=== PATIENT | female | born 1960 | race Caucasian/White ===

== ENCOUNTER 2018-08-13 09:55 | Inpatient (IN) | payer OTHER ==
[~2018-08-13] VITALS: Ht 165.1 cm; Wt 60.8 kg
[2018-08-13] VITALS (28 sets, daily range): BP systolic 108–163; BP diastolic 47–74; PULSE 68–99; RESP 14–20; Ht 165.1 cm; Wt 60.8 kg
[~2018-08-13 09:55] MED LIST: GLYCOPYRROLATE 0.4 MG INJ ONE
--- NOTE | 2018-08-13 12:02 | PREAC ---
Date/Time of Note Date/Time of Note DATE: 08/13/18 TIME: 12:02 Anesthesia Eval and Record Evaluation Time Pre-Procedure Interview DATE: 08/13/18 TIME: 12:02 Age 58 Sex female NPO: 8 hrs Preoperative diagnosis breast CA Planned procedure Mastectomy Past Medical History Past Medical History: None Surgery & Anesthesia Issues No known issue Meds Anticoagulation: No Beta Otoniel within 24 hr: No Reason Beta Otoniel not given: Pt. not on B-Otoniel No Active Prescriptions or Reported Meds Meds reviewed: Yes Allergies Coded Allergies: No Known Allergy (Unverified , 08/13/18) Allergies Reviewed: Yes Labs/Studies Labs Reviewed: Reviewed by anesthesiologist test: Negative Pre-procedure Exam Last vitals Vital Signs Date Temp Pulse Resp B/P (MAP) Pulse Ox O2 O2 Flow FiO2 Time Delivery Rate 08/13/18 99.6 74 16 121/68 99 Room Air 10:05 (85) Airway: Adequate mouth opening, Adequate thyromental dist Mallampati: Mallampati II Teeth: Normal Lung: Normal Heart: Normal ASA Physical Status ASA physical status: 1 Emergency: None Planned Anesthetic General/MAC: ETT Pre-operative Attestations Prior to commencing anesthesia and surgery, the patient was re-evaluated, there was verification of: *The patient's identity *The results of appropriate recent lab work and preoperative vital signs *The above evaluation not changing prior to induction *Anesthetic plan, risk benefits, alternative and complications discussed with patient/family; questions answered; patient/family understands, accepts and wishes to proceed. WOODY SMITH August 13, 2018 12:02
--- NOTE | 2018-08-13 12:32 | HPN ---
Date/Time of Note Date/Time of Note DATE: 08/13/18 TIME: 12:32 Interval H&P Admission Note Pt. seen H&P reviewed: No system changes LINCOLN RUSS MD August 13, 2018 12:32
[2018-08-13] MEDS ORDERED: FENTAnyl 50 MCG/ML VIAL ONE ×2 (12:48→15:58)
[2018-08-13] MEDS ORDERED: CEFAZOLIN 1 GM INJ ONE (14:57)
[2018-08-13] MEDS ORDERED: SUCCINYLCHOLINE CHLORIDE 100 MG/5 ML SYG IV ONE (14:57)
[2018-08-13] MEDS ORDERED: SUGAMMADEX SODIUM 200 MG/2 ML VIAL IV ONE (14:57)
[2018-08-13] MEDS ORDERED: ROCURONIUM 50 MG INJ ONE (14:57)
[2018-08-13] MEDS ORDERED: LIDOCAINE 100 MG SYRINGE ONE (14:57)
[2018-08-13] MEDS ORDERED: PROPOFOL 20 ML ONE (14:57)
[2018-08-13] MEDS ORDERED: BUPIVACAINE 0.25%/EPI (SDV) 30 ML INJ ONE (15:05)
--- NOTE | 2018-08-13 15:50 | OPR ---
Date/Time of Note Date/Time of Note DATE: 08/13/18 TIME: 15:48 Operative Report Procedure Date: August 13, 2018 Preoperative Diagnosis Recurrent invasive ductal carcinoma left breast Postoperative Diagnosis Recurrent invasive ductal carcinoma left breast Operation/Procedure Performed 1. Left modified radical mastectomy 2. Removal of left breast implant 3. Placement of drains Surgeon see signature line [employer] Vishal Lucas MD Anesthesia Type: general Anesthesiologist: WOODY SMITH Estimated Blood Loss: 50 - 100 ml's Transfusion none Specimen 1. Left breast 2. Left axillary lymph node dissection 3. Left breast implant Grafts/Implants none Tubes/Drains 15 [place] Rl drain x2 Complications none Pt Condition Post Procedure: stable Disposition: PACU Indications The patient is a 58-year-old female with a prior history of breast implants and lumpectomy, sentinel lymph node biopsy and chemoradiation to the left breast for a HER-2 positive breast cancer. The patient presented to the office with recurrence of the cancer of the left breast as well as positive left axillary lymph nodes per PET scan. The patient underwent neoadjuvant chemo therapy with minimal response. She was therefore scheduled for modified radical mastectomy with removal of her breast implant on the left side. All risks and benefits of the procedure including, but not limited to: Wound infection, excessive bleeding, postoperative seroma/hematoma formation, prolonged wound healing, wound problems, injury to the long thoracic and thoracodorsal nerves with resulting deficits, etc. were all explained to the patient full detail. Patient fully understood and wished to proceed with the procedure. Informed consent was obtained. Procedure Description Patient was brought to the operating room and placed supine on the operating table. Bilateral sequential compression devices were placed on both lower extremities. A dose of broad-spectrum perioperative intravenous antibiotics was given. After the induction of smooth general endotracheal anesthesia the patient's left breast, axilla, and chest wall were prepped and draped in standard surgical fashion. An elliptical incision was made around the breast to include the nipple areolar complex using a 15 blade scalpel. Incision was carried down through the skin and subcutaneous tissue into the breast tissue using sharp dissection. Flaps were then raised circumferentially to the level of the sternum medially, clavicle superiorly, inframammary fold inferiorly, and latissimus muscle laterally. There was some fibrosis and scarring of the breast tissue from prior surgery and radiation therapy. Approximately the 1:00 location firm mass was palpated. Once circumferential dissection was complete the breast was dissected off of the clavipectoral fascia using electrocautery. Attenuation of the pectoralis muscle was noted. There was some dense fibrosis of the breast tissue to the pectoralis muscle. Once completely dissected off of the clavipectoral fascia the tail of the breast was transected and the specimen passed off the field. Marking suture was used to missy the superior aspect. Intraoperative pathological consultation was obtained and margins were noted to be grossly free of tumor. The breast implant capsule was identified and incised. The breast implant was removed and passed off the field as specimen. Attention was then turned towards the axillary dissection. The patient did have a prior sentinel lymph node biopsy. The remaining axillary tissue was dissected from the level of the axillary vein superiorly to the lateral chest wall and lateral axilla using combination of Bovie electrocautery and LigaSure device. The long thoracic and thoracodorsal neurovascular bundles were identified and preserved throughout the entirety of the procedure. The specimen was then transected and passed off the field. Gloves were then changed in the breast and axillary cavity were irrigated with sterile water. The irrigant returned clear. Hemostasis was inspected for noted to be adequate. A 15 [place]ian round Rl drain was placed over the mastectomy bed, and another drain was placed in the axilla. The drains were brought out through separate stab wounds inferior to the inframammary fold. It was secured in place using 2-0 nylon sutures and hooked up to bulb suction. 0.25% Marcaine with epinephrine was then injected over the area of the incision. Incision was then closed in layers using interrupted 3-0 Vicryl sutures for the dermal layer. The skin was reapproxi mated using 3-0 Monocryl suture in a running subcuticular fashion. Incision was cleaned and Steri-Strips were applied as well as sterile dressings and bios wrap. The patient was then awoke from anesthesia and transported to the recovery room in stable condition. All counts were correct at the end the case x2 LINCOLN RUSS MD August 13, 2018 15:50
[2018-08-13] MEDS ORDERED: HYDROmorphONE 1 MG/5 ML IV SYRINGE IV ONE (15:58)
[2018-08-13] MEDS ORDERED: METOCLOPRAMIDE 10 MG INJ IV PRN (16:00)
[2018-08-13] MEDS ORDERED: IBUPROFEN 600 MG TAB PO PRN (16:00)
[2018-08-13] MEDS ORDERED: HYDROCODONE/APAP (5/325) TAB PO PRN ×2 (16:00)
[2018-08-13] MEDS ORDERED: morphine 4 MG/ML VIAL IV PRN (16:00)
[2018-08-13] MEDS ORDERED: DIPHENHYDRAMINE 50 MG INJ IV PRN (16:00)
[2018-08-13] MEDS ORDERED: ONDANSETRON 4 MG INJ IV PRN ×2 (16:00)
[2018-08-13] MEDS ORDERED: ACETAMINOPHEN 325 MG TAB PO PRN (16:00)
[2018-08-13] MEDS ORDERED: ALBUTEROL 0.083% (NEB) 2.5 MG/3 ML AMP HHN PRN (16:00)
[2018-08-13] MEDS ORDERED: HYDROmorphONE 1 MG/5 ML IV SYRINGE IV PRN ×3 (16:00)
[2018-08-13] MEDS ORDERED: FENTAnyl 50 MCG/ML VIAL IV PRN ×3 (16:00)
[2018-08-13] MEDS ORDERED: MEPERIDINE 25 MG INJ IV PRN (16:00)
[2018-08-13] MEDS: KETOROLAC 30 MG INJ IV PRN (18:06)
[2018-08-13] MEDS: DEXTROSE 5%-0.45% NACL 1,000 ML IV SCH (18:09)
[2018-08-13] MEDS: DOCUSATE SODIUM 100 MG CAP PO SCH (21:49)
[2018-08-13] MEDS: FAMOTIDINE 20 MG TAB PO SCH (21:50)
[2018-08-14] MEDS: KETOROLAC 30 MG INJ IV PRN ×2 (00:14→08:52)
[2018-08-14 02:15] VITALS: BP 109/55; PULSE 73
[2018-08-14 04:00] VITALS: BP 120/68; PULSE 70
[2018-08-14] MEDS: DEXTROSE 5%-0.45% NACL 1,000 ML IV SCH (04:41)
--- NOTE | 2018-08-14 07:26 | PAC ---
Date/Time of Note Date/Time of Note DATE: 08/14/18 TIME: 07:26 Post-Anesthesia Notes Post-Anesthesia Note Last documented vital signs Vital Signs Date Temp Pulse Resp B/P (MAP) Pulse Ox O2 O2 Flow FiO2 Time Delivery Rate 08/14/18 98.5 70 120/68 98 Room Air 04:00 (85) 08/13/18 20 19:30 08/13/18 3.0 17:10 Activity: WNL Respiratory function: WNL Cardiovascular function: WNL Mental status: Baseline Pain reasonably controlled: Yes Hydration appropriate: Yes Nausea/Vomiting absent: Yes WOODY SMITH August 14, 2018 07:26
[2018-08-14 08:05] VITALS: BP 100/55; PULSE 82
[2018-08-14] MEDS: DOCUSATE SODIUM 100 MG CAP PO SCH (08:53)
[2018-08-14] MEDS: FAMOTIDINE 20 MG TAB PO SCH (08:53)
--- NOTE | 2018-08-14 08:55 | PN ---
Date/Time of Note Date/Time of Note DATE: 08/14/18 TIME: 08:53 Assessment/Plan Lines/Catheters IV Catheter Type (from Nrsg): Peripheral IV Assessment/Plan Assessment/Plan 58-year-old female status post left modified radical mastectomy postoperative day #1 * Out of bed/incentive spirometry * Stable for discharge home. * Drain care teaching * Follow-up in office in 1 week Subjective 24 Hr Interval Summary Doing well. Pain controlled. Drain output 60 cc total. Serosanguineous. Afebrile. Exam/Review of Systems Vital Signs Vitals Vital Signs Date Temp Pulse Resp B/P (MAP) Pulse Ox O2 O2 Flow FiO2 Time Delivery Rate 08/14/18 98.6 82 100/55 92 Room Air 08:05 (70) 08/13/18 20 19:30 08/13/18 3.0 17:10 Intake and Output 08/13/18 08/13/18 08/14/18 1515:00 23:00 07:00 IntakeIntake Total 1000 ml 1200 ml OutputOutput Total 1660 ml BalanceBalance 1000 ml -460 ml Exam Free Text/Dictation GENERAL: Awake, alert, oriented x 3. No acute distress. CARDIOVASCULAR: S1S2, regular rate and rhythm. No murmurs appreciated. RESPIRATORY: Clear to auscultation bilaterally. BREASTS: Left mastectomy site clean, dry, intact. Flaps viable. ABDOMEN: Soft, bowel sounds present, nondistended, nontender to palpation. EXTREMITIES: Free range of motion x 4. No cyanosis, edema, or clubbing. NEUROLOGIC: Cranial nerves II-XII are intact. Sensation is intact grossly. Results Result Diagram: 08/14/18 0431 08/14/18 0431 LINCOLN RUSS MD August 14, 2018 08:55
--- NOTE | 2018-08-14 08:58 | PDOCDIS ---
Discharge Instructions DIAGNOSIS Discharge Diagnosis Invasive ductal carcinoma left breast CONDITION [id number] Patient Condition: [id number] Stable HOME CARE INSTRUCTIONS: [id number] Diet Instructions: [id number] Regular ACTIVITY: [id number] Activity Restrictions: [id number] Avoid heavy lifting FOLLOW UP/APPOINTMENTS Follow-up Plan Follow-up in 1-2 weeks LINCOLN RUSS MD August 14, 2018 08:58
--- NOTE | 2018-08-14 09:00 | DS ---
Date/Time of Note Date/Time of Note DATE: 08/14/18 TIME: 08:58 Discharge Summary Admission/Discharge Info Admit Date/Time August 13, 2018 at 09:55 Discharge Date/Time Discharge Diagnosis Invasive ductal carcinoma left breast Patient Condition: Stable Procedures Left modified radical mastectomy Hx of Present Illness The patient is a 58-year-old female with a prior history of breast implants and lumpectomy, sentinel lymph node biopsy and chemoradiation to the left breast for a HER-2 positive breast cancer. The patient presented to the office with recurrence of the cancer of the left breast as well as positive left axillary lymph nodes per PET scan. The patient underwent neoadjuvant chemo therapy with minimal response. She was therefore scheduled for modified radical mastectomy with removal of her breast implant on the left side. Hospital Course Patient underwent left modified radical mastectomy and removal of her left breast implant without complication. Postoperative course uneventful. She is stable for discharge on postoperative day 1 with her pain controlled and tolerating diet. Follow-up Plan Follow-up in 1-2 weeks Primary Care Provider Not On Staff Doctor Time spent on discharge: > 30 minutes Pending Labs Laboratory Tests Test 08/14/18 04:31 08/14/18 07:56 White Blood Count 7.0 10^3/ul (4.8-10.8) Red Blood Count 3.10 10^6/ul (4.20-5.40) Hemoglobin 10.2 g/dl (12.0-16.0) Hematocrit 31.1 % (37.0-47.0) Mean Corpuscular Volume 100.3 fl (82.0-101.0) Mean Corpuscular Hemoglobin 32.9 pg (29.0-33.0) Mean Corpuscular 32.8 g/dl (32.0-37.0) Hemoglobin Concent Red Cell Distribution Width 12.9 % (11.5-14.5) Platelet Count 129 10^3/UL (140-415) Mean Platelet Volume 14.2 fl (7.4-10.4) Immature Granulocytes % 0.100 % (0.001-0.429) Neutrophils % 75.1 % (39.0-77.0) Lymphocytes % 14.9 % (15.0-51.0) Monocytes % 9.5 % (0.0-11.0) Eosinophils % 0.1 % (0.0-7.0) Basophils % 0.3 % (0.0-2.0) Nucleated Red Blood Cells % 0.0 /100WBC (0.0-0.0) Immature Granulocytes # 0.010 10^3/ul (0.0-0.031) Neutrophils # 5.2 10^3/ul (1.6-7.5) Lymphocytes # 1.0 10^3/ul (0.8-2.9) Monocytes # 0.7 10^3/ul (0.3-0.9) Eosinophils # 0.0 10^3/ul (0.0-0.5) Basophils # 0.0 10^3/ul (0.0-0.1) Nucleated Red Blood Cells # 0.0 10^3/ul (0.0-0.0) Sodium Level 140 mmol/L (135-144) Potassium Level 4.4 mmol/L (3.5-5.1) Chloride Level 109 mmol/L (97-110) Carbon Dioxide Level 29 mmol/L (21-31) Anion Gap 2 (5-13) Blood Urea Nitrogen 6 mg/dl (7-20) Creatinine 0.58 mg/dl (0.44-1.00) Est Glomerular Filtrat > 60 mL/min (>60) Rate mL/min Glucose Level 113 mg/dl (70-220) Calcium Level 8.2 mg/dl (8.4-10.2) Lab Scanned Report REFER[facility] LAB [id number] LINCOLN RUSS MD August 14, 2018 09:00
== END 2018-08-14 12:14 | disposition home or self-care (01) | DRG 581 ==
LOC: REC 09:55 → EDSTATUS 12:30 → MS1 17:42
PROVIDERS: ADMIT Surgery; ATTEND Surgery
PROC: 07B60ZX Excision of Left Axillary Lymphatic, Open Approach, Diagnostic (ICD-10-PCS; 2018-08-13)
PROC: 0HPU0JZ Removal of Synthetic Substitute from Left Breast, Open Approach (ICD-10-PCS; 2018-08-13)
PROC: 0HTU0ZZ Resection of Left Breast, Open Approach (ICD-10-PCS; principal; 2018-08-13 12:30)
DX: C50.912 Malignant neoplasm of unspecified site of left female breast (principal); Z17.0 Estrogen receptor positive status [ER+]; Z98.82 Breast implant status
CPT/HCPCS: 80048; 85025; 88300; 88309; J0690; J1170; J1885; J2001; J3010; J7042